=== PATIENT | female | born 1940 | race Caucasian/White ===

== ENCOUNTER → 2018-01-28 | Outpatient (CLI) | payer MEDICARE, BC ==
[2018-01-28 13:43] LABS: Stool Occult Bld Immuno 1 Negative (NEGATIVE)
== END | disposition home or self-care (01) ==
LOC: OLS 10:55 → LAB SHORT 10:55
PROVIDERS: Nurse Practitioner Family
DX: Z13.89 Encounter for screening for other disorder (principal)
CPT/HCPCS: G0328

== ENCOUNTER → 2018-09-17 | Outpatient (CLI) | payer MEDICARE, BC | END | disposition home or self-care (01) | LOC: LAB SHORT 09:55 → LAB EV 09:55 | DX: R30.0 Dysuria (principal) | CPT/HCPCS: 87077; 87086; 87186 ==

== ENCOUNTER → 2020-02-15 | Outpatient (CLI) | payer MEDICARE, BC | END | disposition home or self-care (01) | LOC: LAB 17:26 → LAB SHORT 17:26 | DX: R30.0 Dysuria (principal) | CPT/HCPCS: 87086 ==

== ENCOUNTER 2020-12-12 17:41 | Observation (INO) | payer MEDICARE, BC ==
[~2020-12-12] VITALS: Ht 157.5 cm; Wt 95.8 kg
[2020-12-12 19:29] LABS: International Normalized Ratio 1.06; Prothrombin Time Results 11.4 Sec (9.7-11.5)
[2020-12-12] MEDS ORDERED: OXYB5 PO (19:44)
[2020-12-12] MEDS ORDERED: FUROSEMIDE20 MG PO (19:44)
[2020-12-12] MEDS ORDERED: SYNTHROID75 MCG PO (19:44)
[2020-12-12] MEDS ORDERED: JANUMET 50-1,01 EACH PO (19:45)
[2020-12-12] MEDS ORDERED: LOSA50 PO (19:45)
[2020-12-12] MEDS ORDERED: SPIRONOLACTONE25 MG PO (19:45)
[2020-12-12] MEDS ORDERED: METO100ER PO (19:45)
[2020-12-12] MEDS ORDERED: OMEP20ER PO (19:46)
[2020-12-12] MEDS ORDERED: NAPROXEN500 MG PO (19:46)
[2020-12-12] MEDS ORDERED: ATOR40TA PO (19:46)
[2020-12-13 00:55] LABS: Influenza A, PCR NEGATIVE (NEGATIVE); Influenza B, PCR NEGATIVE (NEGATIVE); Resp Syncytial Virus, PCR NEGATIVE (NEGATIVE); SARS-Cov-2 (COVID-19) PCR, MMC NEGATIVE (NEGATIVE)
[2020-12-13 02:19] LABS: BASOPHILS ABSOLUTE AUTO 0.06 K/mm3 (0.00-0.23); BASOPHILS PERCENT AUTO 0 % (0-2); EOSINOPHILS ABSOLUTE AUTO 0.01 K/mm3 (0.00-0.68); EOSINOPHILS PERCENT AUTO 0 % (0-6); Hematocrit 33.2 % (33.0-51.0); Hemoglobin 10.9 g/dL (11.5-16.0); IMMATURE GRAN ABSOLUTE AUTO 0.11 K/mm3 (0.00-0.10); IMMATURE GRAN PERCENT AUTO 1 % (0-1); LYMPHOCYTES ABSOLUTE AUTO 2.36 K/mm3 (0.84-5.20); LYMPHOCYTES PERCENT AUTO 13 % (21-46); MONOCYTES ABSOLUTE AUTO 1.84 K/mm3 (0.16-1.47); MONOCYTES PERCENT AUTO 10 % (4-13); Mean Corpuscular HGB 29.4 pg (26.0-34.0); Mean Corpuscular HGB Conc 32.8 g/dL (31.5-36.5); Mean Corpuscular Volume 90 fL (80-100); Mean Platelet Volume 9.4 fL (9.1-12.4); NEUTROPHILS PERCENT AUTO 76 % (41-73); Platelet Count 302 K/mm3 (150-400); RDW Coefficient Variation 13.5 % (11.7-14.2); Red Blood Cell Count 3.71 M/mm3 (3.80-5.20); White Blood Cell Count 18.48 K/mm3 (4.00-11.30)
[2020-12-13 02:38] LABS: Alanine Aminotransfer (ALT/SGP 24 U/L (12-78); Albumin, Blood 3.1 g/dL (3.4-5.0); Albumin/Globulin Ratio 0.9 (0.8-1.8); Alk Phos 70 U/L (50-136); Anion Gap 7 mmol/L (6-16); Aspartate Aminotrans (AST/SGOT 15 U/L (12-37); Blood Urea Nitrogen 11 mg/dL (8-24); Bun/Creatinine Ratio 18.4 (12.0-20.0); CO2, Blood 27 mmol/L (21-32); Calcium, Blood 8.5 mg/dL (8.5-10.1); Chloride, Blood 106 mmol/L (98-108); Globulin, Blood 3.3 g/dL (2.2-4.0); Glomerular Filtration Rate >60 (60-); Glucose, Blood 179 mg/dL (70-99); Potassium, Blood 3.9 mmol/L (3.5-5.5); Sodium, Blood 140 mmol/L (136-145); Total Protein, Blood 6.4 g/dL (6.4-8.2)
[2020-12-13 02:52] LABS: Creatine Kinase MB 1.9 ng/mL (0.0-3.6); Creatine Kinase MB Index 3.7 (0.0-4.0)
[2020-12-13 03:13] LABS: Troponin I 0.544 ng/mL (0.000-0.040)
--- NOTE | 2020-12-13 03:51 | NUR ---
PHYSICIAN CONTACT BLENDING KETTLE TENDER PROVIDER NOTIFIED CRITICAL TROPONIN OF 0.544 INCREASED FROM 0.262 PREVIOUSLY. NEW ORDER FOR HEPARIN DRIP PER PHARMACY.
[2020-12-13 10:56] LABS: Creatine Kinase MB 1.4 ng/mL (0.0-3.6); Creatine Kinase MB Index 2.6 (0.0-4.0); Troponin I 0.489 ng/mL (0.000-0.040)
--- NOTE | 2020-12-13 17:53 | NUR ---
SHIFT SUMMARY PT A&OX4, ABLE TO MAKE NEEDS KNOWN. PLEASANT AND COOPERATIVE TO CARE. FAMILY AT BEDSIDE THIS AFTERNOON. NO C/O PAIN OR ANY DISCOMFORT NOTED THIS SHIFT. DENIES CP / SOB / N&V. PT TOLERATED MEDICATIONS WHOLE W/ THIN FLUIDS. PT CONTINUES ON CLEAR LIQUID DIET ORDERED. PT TOLERATING DIET WELL. NO CONCERNS OR ISSUES NOTED FROM PATIENT OR FAMILY THIS SHIFT. PT CALM AND COMFORTABLE IN ROOM T/O SHIFT. BED AT LOWEST POSITION. CALL LIGHT WITHIN REACH.
--- NOTE | 2020-12-13 18:20 | NUR ---
ADMIT: 12/12/20 DISCHARGE: DX: Nausea, vomiting, abdominal pain, back pain. CC: [email or web address] [facility]UA CALL: RESIDENCE: home CAREGIVER: Madelin Hogan, Child, Melinda Butcher, Family Member, titi Rees, Friend, DX: Arteriosclerotic vascular disease, CHF, GERD, HTN, see list DME: DM supplies CCM: none HOME HEALTH: none SUMMARY: Admit: 12/12/20 12/13/20- pt admitted for nausea and vomitting. She has history of cardiac disease and low EF. Cardiology has been following pt's care and ordered echocardiogram that was completed today. No plan for d/c at this time. -dontae
[2020-12-14 02:11] LABS: BASOPHILS ABSOLUTE AUTO 0.06 K/mm3 (0.00-0.23); BASOPHILS PERCENT AUTO 0 % (0-2); EOSINOPHILS ABSOLUTE AUTO 0.18 K/mm3 (0.00-0.68); EOSINOPHILS PERCENT AUTO 1 % (0-6); Hematocrit 29.9 % (33.0-51.0); Hemoglobin 9.9 g/dL (11.5-16.0); IMMATURE GRAN ABSOLUTE AUTO 0.18 K/mm3 (0.00-0.10); IMMATURE GRAN PERCENT AUTO 1 % (0-1); LYMPHOCYTES ABSOLUTE AUTO 2.72 K/mm3 (0.84-5.20); LYMPHOCYTES PERCENT AUTO 20 % (21-46); MONOCYTES ABSOLUTE AUTO 1.76 K/mm3 (0.16-1.47); MONOCYTES PERCENT AUTO 13 % (4-13); Mean Corpuscular HGB 29.6 pg (26.0-34.0); Mean Corpuscular HGB Conc 33.1 g/dL (31.5-36.5); Mean Corpuscular Volume 90 fL (80-100); Mean Platelet Volume 9.8 fL (9.1-12.4); NEUTROPHILS ABSOLUTE AUTO 8.63 K/mm3 (1.96-9.15); NEUTROPHILS PERCENT AUTO 64 % (41-73); Platelet Count 273 K/mm3 (150-400); RDW Coefficient Variation 13.7 % (11.7-14.2); RDW Standard Deviation 45.2 fL (35.1-46.3); Red Blood Cell Count 3.34 M/mm3 (3.80-5.20); White Blood Cell Count 13.53 K/mm3 (4.00-11.30)
[2020-12-14 02:24] LABS: Albumin, Blood 2.6 g/dL (3.4-5.0); Anion Gap 5 mmol/L (6-16); Blood Urea Nitrogen 14 mg/dL (8-24); Bun/Creatinine Ratio 19.2 (12.0-20.0); CO2, Blood 28 mmol/L (21-32); Calcium, Blood 7.9 mg/dL (8.5-10.1); Chloride, Blood 104 mmol/L (98-108); Creatinine, Blood 0.73 mg/dL (0.40-1.00); Glomerular Filtration Rate >60 (60-); Glucose, Blood 138 mg/dL (70-99); Magnesium, Blood 1.4 mg/dL (1.6-2.4); Phosphorus, Blood 2.2 mg/dL (2.5-4.9); Potassium, Blood 3.7 mmol/L (3.5-5.5); Sodium, Blood 137 mmol/L (136-145)
--- NOTE | 2020-12-14 07:23 | NUR ---
COFOUNDER SUMMARY NO ACUTE CHANGES THIS SHIFT. PT AAOX4 AND INDEPENDENT IN ROOM. DENIES SOB, CP. HEPARIN DRIP TITRATED UP FROM 14 U/KG/HR AT START OF SHIFT TO 16 U/KG/HR. CARDIOLOGY CONSULT FOR DR POLLARD LATER TODAY. VSS, WILL CONTINUE TO MONITOR.
--- NOTE | 2020-12-14 12:59 | NUR ---
PT TRANSFERRED TO [employer] TEAM MEMBER FOR SCHEDULED PROCEDURE, ACCOMPANIED BY STAFF OCAMPO.
--- NOTE | 2020-12-14 14:10 | NUR ---
PT TRANSFER TO [facility] FROM [facility]. ON ROOM AIR SATING ABOVE 94%. TELE SHOWING PACED IN THE 60'S. DENIES CHEST PAIN/PRESSURE. RIGHT RADIAL SIGHT WITH TR BAND IN PLACE. SOFT, NON TENDER. NO SIGNS OF BLEEDING/HEMATOMA. PT DENIES PAIN. VITAL SIGNS STABLE. IV FLUIDS INFUSING. PT UP TO BATHROOM WITH SBA FOR SAFETY. ORIENTED TO UNIT AND CALL LIGHT IN REACH. WILL CONTINUE TO MONITOR.
--- NOTE | 2020-12-14 14:56 | NUR ---
REPORT GIVEN TO EULOGIO FRANCO. NO ISSUES OR COMPLAINTS NOTED FROM PATIENT PRIOR TO SCHEDULED PROCEDURE THIS SHIFT.
--- NOTE | 2020-12-14 15:32 | NUR ---
RESTRAINTS JUVENILE COUNSELOR BROUGHT TO OUR ATTENTION THAT RESTRAINTS ARE NOT ALLOWED ON PATIENT'S WHO ARE IN COMFORT CARE. THIS NURSE NOTIFIED DR. ARAYA. PATIENT'S SON AT BEDSIDE WITH PATIENT, HE NOTIFIED THIS RN AND DR. ARAYA THAT HE RECOMMENDED THAT USE OF SOFT RESTRAINTS TO ED PROVIDER UPON PT'S ADMISSION LAST NIGHT D/T PT's BEHAVIOR SUCH TRYING TO SCRATCH OFF WOUND ON L EYE, HE ALSO STATED THAT HE IS IN AGREEMENT ON THE USE OF THE SOFT RESTRAINT FOR PATIENT'S SAFETY AND TO PREVENT INJURY TO SELF. PT IS ONLY A&O TO SELF, CONFUSED AND UNABLE TO FOLLOW SIMPLE INSTRUCTIONS FROM STAFF, PT HAD SEVERAL EPISODES OF WAKING UP AND HAVING PANIC ATTACKS WHILE ATTEMPTING TO BED EXIT. PT ALSO WITNESSED BY STAFF TO ATTEMPT TO PULL ON HAIR AND PULL HER CATHETER. DR. ARAYA IN AGREEMENT, NO FURTHER ORTHERS NOTED. PT CALM AND COMFORTABLE IN BED AT THIS TIME WITH PT's SON AT BEDSIDE.
--- NOTE | 2020-12-14 18:45 | NUR ---
SHIFT SUMMARY: PT ALERT AND ORIENTED X4. ON ROOM AIR SATING ABOVE 94%. TELE SHOWING PACED IN THE 60'S. DENIES CHEST PAIN. COMPLAINS OF SOME "SHAKINESS/FEELING COLD". BLOOD SUGARS WNL, WELL TEMP. VITAL SIGNS STABLE. RIGHT RADIAL SIGHT WNL, ARM BAND IN PLACE. TR BAND REMOVED AT 1840. PT SLEEPING ON AND OFF LATER AFTERNOON. NO SIGN OF BLEEDING OR HEMATOMA. WILL CONTINUE TO MONITOR AND REPORT OFF.
[2020-12-15 04:30] LABS: BASOPHILS ABSOLUTE AUTO 0.05 K/mm3 (0.00-0.23); BASOPHILS PERCENT AUTO 1 % (0-2); EOSINOPHILS ABSOLUTE AUTO 0.47 K/mm3 (0.00-0.68); EOSINOPHILS PERCENT AUTO 4 % (0-6); Hematocrit 28.8 % (33.0-51.0); Hemoglobin 9.5 g/dL (11.5-16.0); IMMATURE GRAN ABSOLUTE AUTO 0.16 K/mm3 (0.00-0.10); IMMATURE GRAN PERCENT AUTO 2 % (0-1); LYMPHOCYTES PERCENT AUTO 22 % (21-46); MONOCYTES ABSOLUTE AUTO 1.06 K/mm3 (0.16-1.47); MONOCYTES PERCENT AUTO 10 % (4-13); Mean Corpuscular HGB 29.9 pg (26.0-34.0); Mean Corpuscular Volume 91 fL (80-100); Mean Platelet Volume 9.5 fL (9.1-12.4); NEUTROPHILS ABSOLUTE AUTO 6.84 K/mm3 (1.96-9.15); NEUTROPHILS PERCENT AUTO 62 % (41-73); Platelet Count 280 K/mm3 (150-400); RDW Coefficient Variation 13.6 % (11.7-14.2); RDW Standard Deviation 44.9 fL (35.1-46.3); Red Blood Cell Count 3.18 M/mm3 (3.80-5.20); White Blood Cell Count 10.98 K/mm3 (4.00-11.30)
[2020-12-15 04:47] LABS: Anion Gap 4 mmol/L (6-16); Blood Urea Nitrogen 10 mg/dL (8-24); Bun/Creatinine Ratio 15.5 (12.0-20.0); CO2, Blood 27 mmol/L (21-32); Calcium, Blood 7.7 mg/dL (8.5-10.1); Chloride, Blood 108 mmol/L (98-108); Creatinine, Blood 0.65 mg/dL (0.40-1.00); Glomerular Filtration Rate >60 (60-); Glucose, Blood 131 mg/dL (70-99); Magnesium, Blood 1.5 mg/dL (1.6-2.4); Potassium, Blood 3.6 mmol/L (3.5-5.5); Sodium, Blood 139 mmol/L (136-145)
--- NOTE | 2020-12-15 06:21 | NUR ---
SHIFT SUMMARY PT WAS ALERT, ORIENTED, AND COOPERATIVE WITH CARE. PT WAS ON ROOM AIR T/O THE NIGHT WITH O2 SATS >94%. ABLE TO AMBULATE TO RESTROOM, SUPERVISION FOR SAFETY. HR 60-70'S. BP STABLE 109-121 SYSTOLIC. R RADIAL SITE WAS UNCHANGED T/O THE SHIFT, NO DISCOLORATION, PAIN, OR SWELLING. TR BAND REMOVED BEFORE START OF SHIFT, ARM BOARD IN PLACE T/O THE NIGHT. PT STATED NO CHEST PAIN OR DISCOMFORT. PT STATES SHE IS DOING MUCH BETTER AND READY TO GO HOME. PT HAD A QUIET UNEVENTFUL NIGHT.
[2020-12-15] MEDS ORDERED: SIME80CH PO (11:28)
--- NOTE | 2020-12-15 13:49 | NUR ---
DISCHARGE: PT ALERT AND ORIENTED X4. ON ROOM AIR SATING ABOVE 94%. TELE SHOWING SINUS/PACED WITH HR 60-70'S. DENIES CHEST PAIN/PRESSURE. RIGHT RADIAL SITE WNL, ARM BAND IN PLACE. POST ANGIO CARE RADIAL SITE INSTRUCTIONS REVIEWED AND QUESTIONS ANSWERED. NEURO WNL. VITAL SIGNS STABLE, NO ACUTE CHANGES. DISCHARGE INSTRUCTIONS REVIEWED AND QUESTIONS ANSWERED. IV TAKEN OUT PER PROTOCOL. TAKEN TO CAR VIA WHEELCHAIR, FAMILY HERE TO TIRE CLASSIFIER PATIENT. DISCHARGING HOME.
== END 2020-12-15 13:28 | disposition home or self-care (01) ==
LOC: ER 17:41 → MEDS 21:15 → ERHOLD 21:15 → ER 21:15 → MEDS 22:38 → ERHOLD 22:38 → MEDS 22:48 → PCU 12-14 13:59
PROVIDERS: Family Medicine; Hospitalist; Student in an Organized Health Care Education/Training Program; ADMIT Internal Medicine
DX: K52.9 Noninfective gastroenteritis and colitis, unspecified (principal); R77.8 Other specified abnormalities of plasma proteins; E11.9 Type 2 diabetes mellitus without complications; I50.9 Heart failure, unspecified; I25.2 Old myocardial infarction; I10 Essential (primary) hypertension; E03.9 Hypothyroidism, unspecified; I25.10 Atherosclerotic heart disease of native coronary artery without angina pectoris; K21.9 Gastro-esophageal reflux disease without esophagitis; D72.829 Elevated white blood cell count, unspecified; Z95.810 Presence of automatic (implantable) cardiac defibrillator; Z20.822 Contact with and (suspected) exposure to COVID-19
CPT/HCPCS: 0241U; 36415; 71045; 76937; 80048; 80053; 80069; 82550; 82553; 82947; 83735; 83880; 84484; 85025; 85610; 85730; 93005; 93010; 93308; 93321; 93458; 96365; 96366; 99152; 99153; 99285-25; A9270; A9270-GY; C1769; C1894; C9113; J1644; J2250; J2370; J2405; J3010; J3475; J7030; J7050; Q9967

== ENCOUNTER → 2020-12-12 | Outpatient (CLI) | payer MEDICARE, BC ==
[~2020-12-12] MED LIST: ATOR40TA PO; FUROSEMIDE20 MG PO; JANUMET 50-1,01 EACH PO; LOSA50 PO; METO100ER PO; NAPROXEN500 MG PO; OMEP20ER PO; OXYB5 PO; SIME80CH PO; SPIRONOLACTONE25 MG PO; SYNTHROID75 MCG PO
[2020-12-12 16:45] LABS: BASOPHILS ABSOLUTE AUTO 0.07 K/mm3 (0.00-0.23); BASOPHILS PERCENT AUTO 0 % (0-2); EOSINOPHILS ABSOLUTE AUTO 0.01 K/mm3 (0.00-0.68); EOSINOPHILS PERCENT AUTO 0 % (0-6); IMMATURE GRAN PERCENT AUTO 1 % (0-1); LYMPHOCYTES ABSOLUTE AUTO 1.26 K/mm3 (0.84-5.20); LYMPHOCYTES PERCENT AUTO 6 % (21-46); MONOCYTES ABSOLUTE AUTO 1.07 K/mm3 (0.16-1.47); MONOCYTES PERCENT AUTO 5 % (4-13); Mean Corpuscular HGB 29.8 pg (26.0-34.0); Mean Corpuscular HGB Conc 33.3 g/dL (31.5-36.5); Mean Corpuscular Volume 89 fL (80-100); Mean Platelet Volume 9.8 fL (9.1-12.4); NEUTROPHILS ABSOLUTE AUTO 17.29 K/mm3 (1.96-9.15); NEUTROPHILS PERCENT AUTO 87 % (41-73); Platelet Count 341 K/mm3 (150-400); RDW Coefficient Variation 13.7 % (11.7-14.2); RDW Standard Deviation 44.8 fL (35.1-46.3); Red Blood Cell Count 4.03 M/mm3 (3.80-5.20)
[2020-12-12 17:12] LABS: Alanine Aminotransfer (ALT/SGP 31 U/L (12-78); Albumin, Blood 3.8 g/dL (3.4-5.0); Alk Phos 83 U/L (40-126); Anion Gap 11 mmol/L (6-16); Aspartate Aminotrans (AST/SGOT 17 U/L (12-37); Bilirubin, Total 0.7 mg/dL (0.1-1.0); Blood Urea Nitrogen 17 mg/dL (8-24); Bun/Creatinine Ratio 22.7 (12.0-20.0); CO2, Blood 28 mmol/L (21-32); Calcium, Blood 9.1 mg/dL (8.5-10.1); Chloride, Blood 98 mmol/L (98-108); Creatinine, Blood 0.75 mg/dL (0.40-1.00); Globulin, Blood 3.7 g/dL (2.2-4.0); Glomerular Filtration Rate >60 (60-); Glucose, Blood 207 mg/dL (70-99); Sodium, Blood 137 mmol/L (136-145); Total Protein, Blood 7.5 g/dL (6.4-8.2)
== END | disposition home or self-care (01) ==
LOC: LAB SHORT 16:33
PROVIDERS: Physician Assistant
DX: R11.2 Nausea with vomiting, unspecified (principal)
CPT/HCPCS: 80053; 83690; 84484; 85025

== ENCOUNTER 2023-12-15 06:39 | Day surgery (SDC) | payer MEDICARE, BC ==
[~2023-12-15] VITALS: Ht 157.5 cm; Wt 89.3 kg
[~2023-12-15 06:39] MED LIST changes: +Balanced Salt Epinephrine Irrigation Solution 500 mL IR PRN; +Gentamicin Ophth IR Soln 4 MG/0.4 ML SYR IR SCH; +LIDOCAINE 2% LEFTEYE SCH; +Lidocaine HCl/Pf 1% 5 ML VIAL XX SCH; +NS 500 ML IV ONE; +PHENYLEPHRINE\\TROPICAMIDE\\TETRACAINE OPHTHALMIC DILATING SOLN LEFTEYE PRN; +Povidone-Iodine 450 DROP/30 ML Solution LEFTEYE SCH; +Povidone-Iodine 450 DROP/30 ML Solution ONE; +Vancomycin Ophth IR Soln 10 MG/0.2 ML SYR IR SCH
--- NOTE | 2023-12-15 07:07 | NUR ---
12/15/23 0707 Alexis Borden PT TOOK OZEMPIC DIABETIC SHOT Thursday12/14/[address] JUAREZ PT WILL BE RESCHEDULE. DR. JUAREZ CONVERSE WITH PT ABOUT RESCHEDULING
[2023-12-15] MEDS ORDERED: OZEMPIC0.25 MG/02 SQ (07:10)
[2023-12-15] MEDS ORDERED: NS 500 ML IV ONE (07:17)
[2023-12-15] MEDS ORDERED: FentaNYL Citrate 50 MCG/ML 2 ML Injection ONE (07:33)
[2023-12-15] MEDS ORDERED: Midazolam HCl 1MG / ML 2ML Vial ONE (07:49)
[2023-12-15] MEDS ORDERED: Tetracaine HCl 0.5% Opth Soln 15 ml LEFTEYE ONE (08:20)
--- NOTE | 2023-12-15 08:34 | NUR ---
12/15/23 0834 Joy Maloney LENS INFORMATION [id number] DIOPTER 18.00 SE 3.00D CYL # [id number] EXP 05/17/25
[2023-12-15 08:44] VITALS: BP 122/79
--- NOTE | 2023-12-15 09:05 | NUR ---
12/15/23 0905 PATTI FAJARDO PT UP TO BR PRIOR TO DC
== END 2023-12-15 09:08 | disposition home or self-care (01) ==
LOC: ORSCSDS 06:39
PROVIDERS: Ophthalmology
PROC: 08RK3JZ Replacement of Left Lens with Synthetic Substitute, Percutaneous Approach (ICD-10-PCS; principal; 2023-12-15 08:00)
DX: E11.36 Type 2 diabetes mellitus with diabetic cataract (principal); H25.12 Age-related nuclear cataract, left eye; Z96.1 Presence of intraocular lens; I10 Essential (primary) hypertension; E03.9 Hypothyroidism, unspecified; E66.9 Obesity, unspecified; Z68.36 Body mass index [BMI] 36.0-36.9, adult; Z79.899 Other long term (current) drug therapy
CPT/HCPCS: 82947; J2250; J3010; J7040; V2632

== ENCOUNTER 2024-06-02 02:47 | Day surgery (SDC) | payer MEDICARE, BC ==
[~2024-06-02 02:47] MED LIST changes: -Balanced Salt Epinephrine Irrigation Solution 500 mL IR PRN; -Gentamicin Ophth IR Soln 4 MG/0.4 ML SYR IR SCH; -LIDOCAINE 2% LEFTEYE SCH; -Lidocaine HCl/Pf 1% 5 ML VIAL XX SCH; -NS 500 ML IV ONE; +OZEMPIC1 MG/0.72 SC; -PHENYLEPHRINE\\TROPICAMIDE\\TETRACAINE OPHTHALMIC DILATING SOLN LEFTEYE PRN; -Povidone-Iodine 450 DROP/30 ML Solution LEFTEYE SCH; -Povidone-Iodine 450 DROP/30 ML Solution ONE; +Sod Ferric Gluc Complx/Sucrose 125 MG in NS 100 ML IV SCH; -Vancomycin Ophth IR Soln 10 MG/0.2 ML SYR IR SCH
[2024-06-02 14:00] VITALS: BP 114/66
[2024-06-02] MEDS ORDERED: ASPI81CH PO (14:17)
[2024-06-02] MEDS ORDERED: PANT40 PO (14:18)
[2024-06-02] MEDS ORDERED: METF500 PO (14:19)
== END 2024-06-02 15:02 | disposition home or self-care (01) ==
LOC: ATC 02:47
DX: D50.9 Iron deficiency anemia, unspecified (principal); R58 Hemorrhage, not elsewhere classified
CPT/HCPCS: 96365; J2916

== ENCOUNTER 2024-06-07 02:15 | Day surgery (SDC) | payer MEDICARE, BC ==
[~2024-06-07 02:15] MED LIST changes: +ASPI81CH PO; +METF500 PO; +PANT40 PO
[2024-06-07 09:20] VITALS: BP 124/60
== END 2024-06-07 10:29 | disposition home or self-care (01) ==
LOC: ATC 02:15
DX: D50.9 Iron deficiency anemia, unspecified (principal); R58 Hemorrhage, not elsewhere classified; E03.9 Hypothyroidism, unspecified; E11.9 Type 2 diabetes mellitus without complications; E78.5 Hyperlipidemia, unspecified; I25.2 Old myocardial infarction; I11.0 Hypertensive heart disease with heart failure; I50.9 Heart failure, unspecified; K21.9 Gastro-esophageal reflux disease without esophagitis; Z79.899 Other long term (current) drug therapy
CPT/HCPCS: 96365; J2916

== ENCOUNTER 2024-06-15 00:51 | Day surgery (SDC) | payer MEDICARE, BC ==
[~2024-06-15 00:51] MED LIST changes: -Sod Ferric Gluc Complx/Sucrose 125 MG in NS 100 ML IV SCH
[2024-06-15] MEDS ORDERED: Sod Ferric Gluc Complx/Sucrose 125 MG in NS 100 ML IV SCH (01:00)
[2024-06-15 09:25] VITALS: BP 110/59
== END 2024-06-15 10:41 | disposition home or self-care (01) ==
LOC: ATC 00:51
DX: D64.9 Anemia, unspecified (principal); E03.9 Hypothyroidism, unspecified; E11.9 Type 2 diabetes mellitus without complications; E78.5 Hyperlipidemia, unspecified; I25.2 Old myocardial infarction; I11.0 Hypertensive heart disease with heart failure; I50.9 Heart failure, unspecified; Z79.899 Other long term (current) drug therapy
CPT/HCPCS: 96365; J2916

== ENCOUNTER 2024-06-22 04:08 | Day surgery (SDC) | payer MEDICARE, BC ==
[~2024-06-22 04:08] MED LIST changes: +Sod Ferric Gluc Complx/Sucrose 125 MG in NS 100 ML IV SCH
[2024-06-22 08:59] VITALS: BP 122/67
== END 2024-06-22 10:00 | disposition home or self-care (01) ==
LOC: ATC 04:08
DX: D50.9 Iron deficiency anemia, unspecified (principal); R58 Hemorrhage, not elsewhere classified; E03.9 Hypothyroidism, unspecified; E78.5 Hyperlipidemia, unspecified; I11.0 Hypertensive heart disease with heart failure; I50.9 Heart failure, unspecified; E11.42 Type 2 diabetes mellitus with diabetic polyneuropathy; I25.2 Old myocardial infarction; Z79.84 Long term (current) use of oral hypoglycemic drugs; Z79.890 Hormone replacement therapy; Z79.899 Other long term (current) drug therapy; Z95.0 Presence of cardiac pacemaker
CPT/HCPCS: 96365; J2916

== ENCOUNTER 2024-06-28 03:12 | Day surgery (SDC) | payer MEDICARE, BC ==
[~2024-06-28 03:12] MED LIST changes: -Sod Ferric Gluc Complx/Sucrose 125 MG in NS 100 ML IV SCH
[2024-06-28] MEDS ORDERED: Sod Ferric Gluc Complx/Sucrose 125 MG in NS 100 ML IV SCH (07:15)
[2024-06-28 09:25] VITALS: BP 106/61
== END 2024-06-28 17:40 | disposition home or self-care (01) ==
LOC: ATC 03:12
DX: D50.9 Iron deficiency anemia, unspecified (principal); R58 Hemorrhage, not elsewhere classified; E11.9 Type 2 diabetes mellitus without complications; E03.9 Hypothyroidism, unspecified; I11.0 Hypertensive heart disease with heart failure; I50.9 Heart failure, unspecified; K21.9 Gastro-esophageal reflux disease without esophagitis; I25.2 Old myocardial infarction; E78.5 Hyperlipidemia, unspecified; Z79.899 Other long term (current) drug therapy; Z79.84 Long term (current) use of oral hypoglycemic drugs; Z79.890 Hormone replacement therapy; Z95.0 Presence of cardiac pacemaker
CPT/HCPCS: 96365; J2916

== ENCOUNTER 2024-07-20 00:42 | Day surgery (SDC) | payer MEDICARE, BC ==
[2024-07-20] MEDS ORDERED: Sod Ferric Gluc Complx/Sucrose 125 MG in NS 100 ML IV SCH (06:00)
[2024-07-20 09:00] VITALS: BP 118/74
== END 2024-07-20 10:14 | disposition home or self-care (01) ==
LOC: ATC 00:42
DX: D50.9 Iron deficiency anemia, unspecified (principal); R58 Hemorrhage, not elsewhere classified; I11.0 Hypertensive heart disease with heart failure; I50.9 Heart failure, unspecified; K21.9 Gastro-esophageal reflux disease without esophagitis; E11.9 Type 2 diabetes mellitus without complications; E03.9 Hypothyroidism, unspecified; E78.5 Hyperlipidemia, unspecified; Z79.84 Long term (current) use of oral hypoglycemic drugs; Z79.890 Hormone replacement therapy; Z79.899 Other long term (current) drug therapy
CPT/HCPCS: 96365; J2916

== ENCOUNTER 2024-07-27 03:59 | Day surgery (SDC) | payer MEDICARE, BC ==
[~2024-07-27 03:59] MED LIST changes: +Sod Ferric Gluc Complx/Sucrose 125 MG in NS 100 ML IV SCH
[2024-07-27 09:38] VITALS: BP 136/80
== END 2024-07-27 10:45 | disposition home or self-care (01) ==
LOC: ATC 03:59
DX: D50.9 Iron deficiency anemia, unspecified (principal); R58 Hemorrhage, not elsewhere classified; I11.0 Hypertensive heart disease with heart failure; I50.9 Heart failure, unspecified; E11.9 Type 2 diabetes mellitus without complications; E03.9 Hypothyroidism, unspecified; E78.5 Hyperlipidemia, unspecified; K21.9 Gastro-esophageal reflux disease without esophagitis; I25.10 Atherosclerotic heart disease of native coronary artery without angina pectoris; I25.2 Old myocardial infarction; Z79.84 Long term (current) use of oral hypoglycemic drugs; Z79.899 Other long term (current) drug therapy
CPT/HCPCS: 96365; J2916

== ENCOUNTER 2024-08-02 04:04 | Day surgery (SDC) | payer MEDICARE, BC ==
[2024-08-02 09:10] VITALS: BP 125/64
== END 2024-08-02 10:07 | disposition home or self-care (01) ==
LOC: ATC 04:04
DX: D50.9 Iron deficiency anemia, unspecified (principal); R58 Hemorrhage, not elsewhere classified; E11.9 Type 2 diabetes mellitus without complications; I11.0 Hypertensive heart disease with heart failure; I50.9 Heart failure, unspecified; E03.9 Hypothyroidism, unspecified; I25.2 Old myocardial infarction; E78.5 Hyperlipidemia, unspecified; K21.9 Gastro-esophageal reflux disease without esophagitis; Z79.890 Hormone replacement therapy; Z79.84 Long term (current) use of oral hypoglycemic drugs; Z79.899 Other long term (current) drug therapy
CPT/HCPCS: 96365; J2916

== ENCOUNTER 2024-09-27 06:28 | Day surgery (SDC) | payer MEDICARE, BC ==
[~2024-09-27] VITALS: Ht 160 cm; Wt 80.0 kg
[~2024-09-27 06:28] MED LIST changes: +Benzocaine Oral Spray 0.5ML UD ONE; -Sod Ferric Gluc Complx/Sucrose 125 MG in NS 100 ML IV SCH; +propofoL 50 ML IV ONE
[2024-09-27] MEDS ORDERED: Lactated Ringer's 1,000 ML IV SCH (07:20)
[2024-09-27 07:37] VITALS: BP 129/73
--- NOTE | 2024-09-27 07:39 | NUR ---
Ambulatory in Day SurgeryPre-Op teaching done. Pt verbalizes understanding. Patient confirms NPO status and agrees with scheduled surgery. History, Chart, Medications and Allergies reviewed before start of procedure.Pre-Op teaching done. Pt verbalizes understanding. Patient States Post-Procedure ride home has been arranged.
--- NOTE | 2024-09-27 08:17 | NUR ---
09/27/24 0817 Antonio Murcia History, Chart, Medications and Allergies reviewed before start of procedure. MONITOR INTACT WITH CONTINUOUS PULSE OXIMETRY, CONTINUOUS END TITAL CO2, AND INTERMITTENT BLOOD PRESSURE. 3-LEAD EKG REVIEWED WITH PHYSICIAN PRIOR TO START OF PROCEDURE. O2 VIA POM INTACT THROUGHOUT SEDATION/PROCEDURE. Bite Block Placed AT START OF SEDATION. PT EDUCATED ON BITE BLOCK.
[2024-09-27 09:01] VITALS: BP 108/64
[2024-09-27 09:15] VITALS: BP 113/59
--- NOTE | 2024-09-27 09:39 | NUR ---
Discharge instructions reviewed with patient. Patient verbalizes understanding. Copy given to patient to take home. Patient States Post-Procedure ride home has been arranged. Discharged via wheelchair to private car for ride home.
== END 2024-09-27 09:40 | disposition home or self-care (01) ==
LOC: ORSCMMR 06:28 → ORD 08:00 → ORSCMMR 08:00 → ORD 09:00 → ORSCMMR 09:40
PROVIDERS: Internal Medicine Gastroenterology
PROC: 0DB68ZX Excision of Stomach, Via Natural or Artificial Opening Endoscopic, Diagnostic (ICD-10-PCS; principal; 2024-09-27 08:00)
PROC: 0DB48ZX Excision of Esophagogastric Junction, Via Natural or Artificial Opening Endoscopic, Diagnostic (ICD-10-PCS; principal; 2024-09-27 08:00)
PROC: 0DJD8ZZ Inspection of Lower Intestinal Tract, Via Natural or Artificial Opening Endoscopic (ICD-10-PCS; principal; 2024-09-27 08:00)
PROC: 0DB98ZX Excision of Duodenum, Via Natural or Artificial Opening Endoscopic, Diagnostic (ICD-10-PCS; principal; 2024-09-27 08:00)
DX: K21.9 Gastro-esophageal reflux disease without esophagitis (principal); D50.0 Iron deficiency anemia secondary to blood loss (chronic); I25.2 Old myocardial infarction; I50.9 Heart failure, unspecified; E03.9 Hypothyroidism, unspecified; E11.9 Type 2 diabetes mellitus without complications; I25.10 Atherosclerotic heart disease of native coronary artery without angina pectoris; E66.9 Obesity, unspecified; Z79.85 Long-term (current) use of injectable non-insulin antidiabetic drugs; Z79.84 Long term (current) use of oral hypoglycemic drugs; Z79.82 Long term (current) use of aspirin; Z79.899 Other long term (current) drug therapy
CPT/HCPCS: 82947; 88305; 88342; A9270; J2704; J7120